=== PATIENT | male | born 1990 | race Caucasian/White ===

== ENCOUNTER 2019-02-10 12:09 | Outpatient (CLI) | payer SELFPAY ==
[~2019-02-10 12:09] MED LIST: HYDR-4384 PO; SULF1TAB49 PO
== END 2019-02-10 12:35 | disposition home or self-care (01) ==
LOC: ORTHO 12:09
PROVIDERS: ATTEND Orthopaedic Surgery
DX: S61.210A Laceration without foreign body of right index finger without damage to nail, initial encounter (principal); X58.XXXA Exposure to other specified factors, initial encounter; Y93.89 Activity, other specified; Y92.89 Other specified places as the place of occurrence of the external cause; Y99.8 Other external cause status
CPT/HCPCS: 99213

== ENCOUNTER 2019-02-17 14:07 | Outpatient (CLI) | payer SELFPAY ==
[2019-02-17 17:04] VITALS: BP 143/72
== END 2019-02-17 14:55 | disposition home or self-care (01) ==
LOC: ORTHO 14:07
PROVIDERS: ATTEND Orthopaedic Surgery
DX: S62.630D Displaced fracture of distal phalanx of right index finger, subsequent encounter for fracture with routine healing (principal); X58.XXXD Exposure to other specified factors, subsequent encounter
CPT/HCPCS: 73130; 99213

== ENCOUNTER 2019-04-27 16:09 | Outpatient (CLI) | payer MEDICAID | END 2019-04-27 16:27 | disposition home or self-care (01) | LOC: ORTHO 16:09 | PROVIDERS: ATTEND Orthopaedic Surgery | DX: S61.210D Laceration without foreign body of right index finger without damage to nail, subsequent encounter (principal); X58.XXXD Exposure to other specified factors, subsequent encounter | CPT/HCPCS: 73130; G0463 ==

== ENCOUNTER 2020-04-15 14:42 | Emergency (ER) | payer MEDICAID ==
[~2020-04-15] VITALS: Ht 182.9 cm; Wt 104.5 kg
[2020-04-15 14:45] VITALS: BP 153/94
== END 2020-04-15 17:40 | disposition left against medical advice (07) ==
LOC: ER 14:43
DX: S61.411A Laceration without foreign body of right hand, initial encounter (principal); Z53.21 Procedure and treatment not carried out due to patient leaving prior to being seen by health care provider; X58.XXXA Exposure to other specified factors, initial encounter; Y93.89 Activity, other specified; Y92.89 Other specified places as the place of occurrence of the external cause; Y99.8 Other external cause status

== ENCOUNTER 2020-06-21 10:48 | Emergency (ER) | payer MEDICAID ==
[~2020-06-21] VITALS: Ht 182.9 cm; Wt 104.0 kg
[2020-06-21 11:01] VITALS: BP 168/108
--- NOTE | 2020-06-21 11:55 | NUR ---
Pt. seen, assessed, and discharged by physician prior to RN contact.
== END 2020-06-21 11:50 | disposition home or self-care (01) ==
LOC: ER 10:49
DX: F15.90 Other stimulant use, unspecified, uncomplicated (principal)
CPT/HCPCS: 99281

== ENCOUNTER 2023-03-17 15:13 | Emergency (ER) | payer MEDICAID ==
[~2023-03-17] VITALS: Ht 182.9 cm; Wt 93.2 kg
--- NOTE | 2023-03-17 15:30 | NUR ---
pt waiting in [facility]
[2023-03-17 16:07] VITALS: BP 145/89
== END 2023-03-17 16:21 ==
LOC: ER 15:13
DX: S40.812A Abrasion of left upper arm, initial encounter (principal); S40.811A Abrasion of right upper arm, initial encounter; F17.200 Nicotine dependence, unspecified, uncomplicated; G89.29 Other chronic pain; F15.90 Other stimulant use, unspecified, uncomplicated; Z98.890 Other specified postprocedural states; V87.7XXA Person injured in collision between other specified motor vehicles (traffic), initial encounter; Y93.89 Activity, other specified; Y92.488 Other paved roadways as the place of occurrence of the external cause; Y99.8 Other external cause status
CPT/HCPCS: 99283